=== PATIENT | female | born 1940 | race Caucasian/White ===

== ENCOUNTER → 2019-01-13 | Outpatient (CLI) | payer MEDICARE ==
[~2019-01-13] MED LIST: ALEN70TA3 PO; BUSP5TAB2 PO; CYCL-259 PO; DICL100T PO; DICL75TA3 PO; DOCU100C33 PO; HYDR-2443 PO; HYDR-3307 PO; OMEP-110 PO; OXYC1TAB8 PO; SERT100T PO; SIMV40TA PO
== END | disposition home or self-care (01) ==
LOC: CFH 13:04
PROVIDERS: ATTEND Nurse Practitioner Family
DX: M81.0 Age-related osteoporosis without current pathological fracture (principal)
CPT/HCPCS: 77080